=== PATIENT | female | born 1990 | race Caucasian/White ===

== ENCOUNTER → 2020-06-22 | Outpatient (CLI) | payer OTHER ==
--- NOTE | 2020-06-22 16:30 | REP ---
INDICATION: RAS DIAG MAMMO/MASTODYNIA; RAS BREAST MASTODYNIA. COMPARISON: No comparison breast imaging. TECHNIQUE: Bilateral CC and MLO) view(s) were taken. Routine views of each breast are augmented by 3D tomography. Targeted bilateral sonography is performed. FINDINGS: Scattered fibroglandular elements are seen bilaterally. No suspicious or dominant density is seen. No microcalcification or architectural distortion is seen. No worrisome skin change is appreciated. There is a normal appearing intramammary lymph node in the upper outer quadrant on the right measuring 5 mm. 3-D tomosynthesis shows no additional finding. The Volpara volumetric breast density pattern is B Targeted sonographic. Bilateral subareolar and upper outer quadrant breast sonography is performed. Heterogeneous fibroglandular background echotexture is seen bilaterally. No cyst, mass, or suspicious acoustic shadowing is seen. IMPRESSION: BIRADS/ACR 2 benign mammographic and sonographic findings.. This patient's Tyrer-Cuzick lifetime breast cancer risk assessment score is 11.1%. This mammogram was interpreted with the aid of an FDA-approved computer-aided detection system. The patient states that she/he has not had a clinical breast exam in over a year. The patient letter being requested is M2. RECOMMENDATION: Repeat screening mammography recommended 1 year (for women over 40). <Electronically signed by Froylan Monzon > 06/22/20 [id number]
== END ==
LOC: M WHC 15:11
PROVIDERS: ATTEND Nurse Practitioner Family
DX: N64.4 Mastodynia (principal); Z12.31 Encounter for screening mammogram for malignant neoplasm of breast
CPT/HCPCS: 76642; 77066; G0279